=== PATIENT | male | born 1940 | race Caucasian/White ===

== ENCOUNTER 2016-03-14 00:32 | Emergency (ER) | payer OTHER ==
[2011-11-22 01:01] VITALS: BMI 27.2
[2016-03-14 01:12] LABS: BASOPHILS 0.6 % (0.0-2.0); EOSINOPHILS 4.1 % (0-7); HEMATOCRIT 44.1 % (42.0-54.0); HEMOGLOBIN 15.1 g/dL (13.5-17.5); IMMATURE GRANULOCYTES 0.6 % (0-5); LYMPHOCYTES 38.1 % (15-50); MCH 31.9 pg (26.0-34.0); MCHC 34.2 g/dL (31.0-37.0); MONOCYTES 4.4 % (2-11); NEUTROPHILS 52.2 % (40-80); PLATELET COUNT 147 10x3/uL (130-400); RBC 4.74 10x6/uL (4.20-6.10); RDW 12.8 % (11.5-14.5); WBC 8.5 10x3/uL (4.8-10.8)
[2016-03-14 01:31] LABS: ALBUMIN 3.6 g/dL (3.4-5.0); ALKALINE PHOSPHATASE 60 U/L (46-116); ALT (SGPT) 48 U/L (10-68); BILIRUBIN - TOTAL 0.44 mg/dL (0.2-1.3); CALC OSMOLALITY 282 mosm/kg (275-300); CALCIUM 9.1 mg/dL (8.5-10.1); CHLORIDE - SERUM 105 mmol/L (98-107); CREATININE - SERUM 1.1 mg/dL (0.6-1.3); GLUCOSE 115 mg/dL (74-106); POTASSIUM - SERUM 3.9 mmol/L (3.5-5.1); PROTEIN - SERUM 6.9 g/dL (6.4-8.2); SODIUM 142 mmol/L (136-145); UREA NITROGEN 9 mg/dL (7-18); eGFR NON AFRICAN AMERICAN 70 mL/min (90-120)
[2016-03-14 01:39] LABS: CHOL - HDL RATIO 5.7 ratio (2.3-4.9); CHOLESTEROL, TOTAL 166 mg/dL (0-200); CKMB 0.6 U/L (0.0-3.6); CREATINE KINASE 76 UL (21-232); HDL CHOLESTEROL 29 mg/dL (32-96); LDL CHOLESTEROL 79 mg/dL (0-100); LDL-HDL RATIO 2.7 ratio (1.5-3.5); TRIGLYCERIDE 293 mg/dL (30-200)
[2016-03-14 01:43] LABS: TROPONIN-I < 0.017 ng/mL (0.000-0.060)
== END 2016-03-14 06:42 | disposition other institution (70) ==
LOC: D.ER 00:32
PROVIDERS: Emergency Medicine
DX: R07.9 Chest pain, unspecified (principal); I25.10 Atherosclerotic heart disease of native coronary artery without angina pectoris

== ENCOUNTER 2017-04-26 15:25 | Emergency (ER) | payer OTHER ==
[2011-11-22 01:01] VITALS: BMI 27.2
[2017-04-26 16:26] LABS: BASOPHILS 0.3 % (0-2); HEMATOCRIT 42.5 % (42.0-54.0); HEMOGLOBIN 14.9 g/dL (13.5-17.5); IMMATURE GRANULOCYTES 0.3 % (0-5); LYMPHOCYTES 34.2 % (15-50); MCH 32.1 pg (26.0-34.0); MCHC 35.1 g/dL (31.0-37.0); MCV 91.6 fL (80.0-100.0); MEAN PLATELET VOLUME 10.3 fL (7.4-10.4); MONOCYTES 5.4 % (2-11); NEUTROPHILS 54.8 % (40-80); PLATELET COUNT 125 10x3/uL (130-400); RBC 4.64 10x6/uL (4.20-6.10); RDW 13.6 % (11.5-14.5); WBC 7.4 10x3/uL (4.8-10.8)
[2017-04-26 16:27] LABS: ALBUMIN 3.6 g/dL (3.4-5.0); ALKALINE PHOSPHATASE 73 U/L (46-116); ALT (SGPT) 27 U/L (10-68); BILIRUBIN - TOTAL 0.74 mg/dL (0.2-1.3); CALC OSMOLALITY 277 mosm/kg (275-300); CALCIUM 8.6 mg/dL (8.5-10.1); CHLORIDE - SERUM 102 mmol/L (98-107); GLUCOSE 112 mg/dL (74-106); PROTEIN - SERUM 6.8 g/dL (6.4-8.2); SODIUM 138 mmol/L (136-145); UREA NITROGEN 15 mg/dL (7-18); eGFR NON AFRICAN AMERICAN 78 mL/min (90-120)
[2017-04-26 16:30] LABS: CREATINE KINASE 90 UL (21-232)
[2017-04-26 17:04] LABS: CKMB 1.5 U/L (0.0-3.6)
[2017-04-26 17:05] LABS: TROPONIN-I < 0.017 ng/mL (0.000-0.060)
== END 2017-04-26 23:06 | disposition home or self-care (01) ==
LOC: D.ER 15:25
PROVIDERS: Family Medicine
DX: R42 Dizziness and giddiness (principal); R07.9 Chest pain, unspecified

== ENCOUNTER 2017-10-30 12:40 | Emergency (ER) | payer OTHER ==
[~2017-10-30] VITALS: Ht 188 cm; Wt 86.4 kg
[2017-10-30 12:55] VITALS: Ht 188 cm; Wt 86.4 kg
[2017-10-30] MEDS ORDERED: ISOSORBIDE MONO60 M1 PO (12:59)
[2017-10-30] MEDS ORDERED: NITROSTAT0.4 MG SL (12:59)
[2017-10-30] MEDS ORDERED: FLINTSTONE1 TAB.CHEW PO (12:59)
[2017-10-30] MEDS ORDERED: NITRO-DUR0.4 MG TRANSDERM (12:59)
[2017-10-30] MEDS ORDERED: BAYER CHEWABLE81 MG PO (12:59)
[2017-10-30] MEDS ORDERED: LIPITOR80 MG PO (12:59)
[2017-10-30] MEDS ORDERED: SYMBICORT 80-10.2 GM INH (13:00)
[2017-10-30] MEDS ORDERED: MIRALAX17 GM PO (13:00)
[2017-10-30] MEDS ORDERED: OMEPRAZOLE20 M1 PO (13:00)
[2017-10-30] MEDS ORDERED: ZOVIRAX200 MG PO (13:00)
[2017-10-30] MEDS ORDERED: TRAZODONE HCL50 MG PO (13:01)
[2017-10-30] MEDS ORDERED: GLUCOPHAGE500 MG PO (13:01)
[2017-10-30] MEDS ORDERED: RANEXA500 MG PO (13:01)
[2017-10-30 13:30] LABS: BASOPHILS 0.5 % (0-2); EOSINOPHILS 4.9 % (0-7); HEMATOCRIT 43.3 % (42.0-54.0); HEMOGLOBIN 15.5 g/dL (13.5-17.5); IMMATURE GRANULOCYTES 0.3 % (0-5); MCH 32.8 pg (26.0-34.0); MCHC 35.8 g/dL (31.0-37.0); MCV 91.5 fL (80.0-100.0); MEAN PLATELET VOLUME 10.3 fL (7.4-10.4); MONOCYTES 4.9 % (2-11); NEUTROPHILS 52.4 % (40-80); PLATELET COUNT 135 10x3/uL (130-400); RBC 4.73 10x6/uL (4.20-6.10); RDW 12.7 % (11.5-14.5); WBC 7.3 10x3/uL (4.8-10.8)
[2017-10-30 13:45] LABS: INR 1.06 (0.85-1.17); PROTIME 13.4 SECONDS (11.6-15.0)
[2017-10-30 13:46] LABS: APTT 33.1 SECONDS (22.8-39.4)
[2017-10-30 13:54] LABS: ALBUMIN 3.5 g/dL (3.4-5.0); ALKALINE PHOSPHATASE 78 U/L (46-116); ALT (SGPT) 25 U/L (10-68); BILIRUBIN - TOTAL 0.84 mg/dL (0.2-1.3); CALC OSMOLALITY 278 mosm/kg (275-300); CALCIUM 8.2 mg/dL (8.5-10.1); CARBON DIOXIDE 29.1 mmol/L (21.0-32.0); CHLORIDE - SERUM 107 mmol/L (98-107); GLUCOSE 119 mg/dL (74-106); PROTEIN - SERUM 6.6 g/dL (6.4-8.2); SODIUM 140 mmol/L (136-145); UREA NITROGEN 11 mg/dL (7-18); eGFR NON AFRICAN AMERICAN 77 mL/min (90-120)
[2017-10-30 14:06] LABS: CKMB 0.7 U/L (0.0-3.6); CREATINE KINASE 90 UL (21-232)
[2017-10-30 14:10] LABS: TROPONIN-I < 0.017 ng/mL (0.000-0.060)
[2017-10-30 20:15] VITALS: BP 140/83
== END 2017-10-30 21:36 | disposition other institution (70) ==
LOC: D.ER 12:40
PROVIDERS: Family Medicine
DX: R07.9 Chest pain, unspecified (principal); E11.9 Type 2 diabetes mellitus without complications; I10 Essential (primary) hypertension; K21.9 Gastro-esophageal reflux disease without esophagitis; Z85.46 Personal history of malignant neoplasm of prostate

== ENCOUNTER 2019-07-19 17:40 | Emergency (ER) | payer OTHER ==
[~2019-07-19] VITALS: Ht 188 cm; Wt 83.6 kg
[~2019-07-19 17:40] MED LIST: BAYER CHEWABLE81 MG PO; FLINTSTONE1 TAB.CHEW PO; GLUCOPHAGE500 MG PO; ISOSORBIDE MONO60 M1 PO; LIPITOR80 MG PO; MIRALAX17 GM PO; NITRO-DUR0.4 MG TRANSDERM; NITROSTAT0.4 MG SL; OMEPRAZOLE20 M1 PO; RANEXA500 MG PO; SYMBICORT 80-10.2 GM INH; TRAZODONE HCL50 MG PO; ZOVIRAX200 MG PO
[2019-07-19 17:57] VITALS: Ht 188 cm; Wt 83.6 kg
[2019-07-19 18:31] LABS: BASOPHILS 0.4 % (0-2); HEMATOCRIT 46.4 % (42.0-54.0); LYMPHOCYTES 32.9 % (15-50); MCH 33.4 pg (26.0-34.0); MCHC 34.5 g/dL (31.0-37.0); MCV 96.9 fL (80.0-100.0); MEAN PLATELET VOLUME 9.6 fL (7.4-10.4); MONOCYTES 6.3 % (2-11); NEUTROPHILS 57.4 % (40-80); PLATELET COUNT 154 10x3/uL (130-400); RBC 4.79 10x6/uL (4.20-6.10); RDW 12.4 % (11.5-14.5); WBC 6.9 10x3/uL (4.8-10.8)
[2019-07-19 18:37] LABS: CALC OSMOLALITY 280 mosm/kg (275-300); CALCIUM 8.9 mg/dL (8.5-10.1); CARBON DIOXIDE 27.8 mmol/L (21.0-32.0); CHLORIDE - SERUM 104 mmol/L (98-107); CREATININE - SERUM 1.4 mg/dL (0.6-1.3); GLUCOSE 119 mg/dL (74-106); POTASSIUM - SERUM 3.9 mmol/L (3.5-5.1); SODIUM 139 mmol/L (136-145); UREA NITROGEN 18 mg/dL (7-18); eGFR NON AFRICAN AMERICAN 52 mL/min (90-120)
[2019-07-19 18:39] LABS: APTT 33.5 SECONDS (22.8-39.4); INR 1.06 (0.85-1.17); PROTIME 13.8 SECONDS (11.6-15.0)
[2019-07-19 18:53] LABS: ALBUMIN 3.6 g/dL (3.4-5.0); ALKALINE PHOSPHATASE 87 U/L (30-120); ALT (SGPT) 20 U/L (10-68); BILIRUBIN - TOTAL 0.62 mg/dL (0.2-1.3); CKMB 1.1 U/L (0.0-3.6); CREATINE KINASE 75 UL (21-232); MAGNESIUM - SERUM 2.1 mg/dL (1.8-2.4); PROTEIN - SERUM 6.7 g/dL (6.4-8.2)
[2019-07-19 19:00] LABS: TROPONIN-I < 0.017 ng/mL (0.000-0.060)
[2019-07-19 20:04] LABS: BILIRUBIN NEGATIVE (NEGATIVE); GLUCOSE NEGATIVE (NEGATIVE); KETONE NEGATIVE (NEGATIVE); NITRITE NEGATIVE (NEGATIVE); UROBILINOGEN NORMAL (NORMAL)
[2019-07-19 23:10] VITALS: BP 138/75
== END 2019-07-19 23:10 | disposition other institution (70) ==
LOC: D.ER 17:40
PROVIDERS: Family Medicine
DX: R26.89 Other abnormalities of gait and mobility (principal); R29.90 Unspecified symptoms and signs involving the nervous system; I20.0 Unstable angina; R53.1 Weakness; K21.9 Gastro-esophageal reflux disease without esophagitis; E11.9 Type 2 diabetes mellitus without complications; G20 Parkinson's disease; Z79.84 Long term (current) use of oral hypoglycemic drugs; R07.9 Chest pain, unspecified; R11.0 Nausea